=== PATIENT | male | born 1990 | race Asian ===

== ENCOUNTER → 2024-08-17 12:09 | Outpatient (CLI) | payer OTHER, SELFPAY ==
--- NOTE | 2024-08-17 12:14 | DI.RAD.S_ITS ---
PROCEDURE: XR CHEST 2V INDICATIONS: Allergic rhinitis, unspecified TECHNIQUE: 2 views of the chest were acquired. COMPARISON: None. FINDINGS: Surgical changes and devices: None. Lungs and pleura: Lungs are clear. No pleural effusions or pneumothorax. Mediastinum: Mediastinal contours are normal. Heart size is normal. Bones and chest wall: No suspicious bony abnormalities. Soft tissues appear unremarkable. IMPRESSION: No acute pulmonary process. Dictated by: Kena Farrar M.D. on 08/17/2024 at 21:38 Approved by: Kena Farrar M.D. on 08/17/2024 at 21:38
== END ==
PROVIDERS: Referring Provider Chiropractor; Visit Provider Chiropractor
DX: J30.9 Allergic rhinitis, unspecified (principal)
CPT/HCPCS: 71046